=== PATIENT | female | born 1940 | race Caucasian/White ===

== ENCOUNTER → 2018-01-15 | Outpatient (CLI) | payer OTHER | LOC: FIMAGING 13:14 | PROVIDERS: ATTEND Orthopaedic Surgery | DX: Z01.818 Encounter for other preprocedural examination (principal); M17.12 Unilateral primary osteoarthritis, left knee; M25.462 Effusion, left knee; M71.22 Synovial cyst of popliteal space [Baker], left knee ==

== ENCOUNTER 2018-02-06 08:07 | Observation (INO) | payer OTHER ==
--- NOTE | 2018-02-06 07:12 | PDHPUP ---
History & Physical Update H&P update statement: This history and physical update is based on an assessment of the patient which was completed after admission or registration (within 24 hours), but prior to the surgery/procedure. H&P update: H&P reviewed & patient examined, no change in patient's condition since H&P completed
[~2018-02-06 08:07] MED LIST: BUPI/epINEPH/KETOROLAC IU ONE; ROPIVACAINE 0.2% 80 MG, EPINEPHrine 0.2 MG, KETOROLAC TROMETHAMINE 30 MG in SYRINGE 0 ML IU ONE; TRANEXAMIC ACID 3,000 MG in NS (SYRINGE) 50 ML IRR ONE; TRANEXAMIC ACID 3,000 MG/50 ML BAG IRR ONE
[2018-02-06] MEDS ORDERED: ACETAMINOPHEN 325 MG TAB PO ONE (08:48)
[2018-02-06] MEDS ORDERED: FAMOTIDINE 20 MG TAB PO ONE (08:48)
[2018-02-06] MEDS ORDERED: ceFAZolin 2 GM/SWFI 2 GM/20 ML SYR IVP ONE (08:48)
[2018-02-06] MEDS ORDERED: DEXAMETHASONE 4 MG/ML VIAL IVP ONE (08:48)
[2018-02-06] MEDS ORDERED: LIDOCAINE 1% 2 ML INJ ID PRN (08:49)
[2018-02-06] MEDS ORDERED: LR 1,000 ML IV ONE (08:49)
[2018-02-06] MEDS ORDERED: NON-FORMULARY NEW DRUG (Carboxymethylcellulose 1% [Refresh Celluvisc (*)] 1 DROP) EACHEYE PRN ×2 (09:34→09:49)
[2018-02-06] MEDS ORDERED: MIDAZOLAM 2 MG/2 ML VIAL IVP ONE (09:56)
[2018-02-06] MEDS ORDERED: MIDAZOLAM 2 MG/2 ML VIAL ONE (09:56)
[2018-02-06] MEDS ORDERED: ONDANSETRON 4 MG/2 ML VIAL IVP PRN ×2 (09:58→11:29)
[2018-02-06] MEDS ORDERED: ACETAMINOPHEN 500 MG TAB PO PRN (09:58)
[2018-02-06] MEDS ORDERED: fentaNYL 100 MCG/2 ML INJ IVP PRN (09:58)
[2018-02-06] MEDS ORDERED: PROMETHAZINE HCL 25 MG/ML INJ IVP PRN ×2 (09:58→11:29)
[2018-02-06] MEDS ORDERED: NALOXONE HCL 0.4 MG/ML INJ IVP PRN (09:58)
[2018-02-06] MEDS ORDERED: LR 500 ML IV PRN (09:58)
[2018-02-06] MEDS ORDERED: oxyCODONE IR 5 MG TAB PO PRN (09:58)
[2018-02-06] MEDS ORDERED: MEPERIDINE 25 MG/ML SYR IVP PRN (09:58)
--- NOTE | 2018-02-06 09:58 | PDANEPAE ---
ANE Past Medical History - Cardiovascular History Hx Hypertension: Yes Hx Arrhythmias: No Hx Chest Pain: No Hx Coronary Artery / Peripheral Vascular Disease: No Hx CHF / Valvular Disease: No Hx Palpitations: No Cardiovascular History Comment: HCTZ - Pulmonary History Hx COPD: No Hx Asthma/Reactive Airway Disease: No Hx Recent Upper Respiratory Infection: No Hx Oxygen in Use at Home: No Hx Sleep Apnea: No Sleep Apnea Screening Result - Last Documented: Positive - Neurologic History Hx Cerebrovascular Accident: No Hx Seizures: No Hx Dementia: No - Endocrine History Hx Diabetes: Yes Endocrine History Comment: HYPOTHYROID - Renal History Hx Renal Disorders: Yes Renal History Comment: KIDNEY CYST - Liver History Hx Hepatic Disorders: No - Neurological & Psychiatric Hx Hx Neurological and Psychiatric Disorders: Yes Neurological / Psychiatric History Comment: ANXIETY - Cancer History Hx Cancer: No - Congenital Disorder History Hx Congenital Disorders: No - GI History Hx Gastrointestinal Disorders: Yes Gastrointestinal History Comment: CELIAC DISEASE - Other Health History Other Health History: FIBROMYALGIA - Chronic Pain History Chronic Pain: Yes (FIBROMYALGIA GENERALIZED) - Surgical History Prior Surgeries: SPINAL FUSION L2-S1 -- 03/2015. CYST BACK OF LEG. GANGLION CYSTS HAND. TUBAL LIGATION. C SECTION X3 ANE Review of Systems Review of Systems: - Exercise capacity METS (RN): 4 METS ANE Patient History - Allergies Allergies/Adverse Reactions: gluten Allergy (Verified 01/21/18 11:18) STOMACH ACHE - Home Medications Home medications: home medication list seen and reviewed Home Medications: Acetaminophen [Tylenol ES 500 mg (*)] 1,000 mg PO TID 01/16/18 [Last Taken Unknown] Calcium Carb W/Vit D [Calcium Carb W/Vit D 500/200 (*)] 500 mg PO TID 01/16/18 [ Last Taken Unknown] Carboxymethylcellulose 1% [Refresh Celluvisc (*)] 1 drop EACHEYE DAILY PRN 01/16 [Last Taken Unknown] Cholecalciferol Vit D3 [Vitamin D3 2000 units tab (OTC)] 2,000 units PO DAILY [Last Taken Unknown] DULoxetine [Cymbalta 60 MG (*)] 60 mg PO HS 01/16/18 [Last Taken Unknown] Fexofenadine HCl 180 mg PO BID 01/16/18 [Last Taken Unknown] Hydrochlorothiazide [HCTZ (*)] 25 mg PO DAILY 01/16/18 [Last Taken Unknown] Levothyroxine [Synthroid 137 mcg (*)] 137 mcg PO DAILY06 01/16/18 [Last Taken Unknown] Liothyronine Sodium [Cytomel 5 mcg (*)] 5 mcg PO DAILY 01/16/18 [Last Taken Unknown] Methocarbamol [Robaxin 750 mg (*)] 750 mg PO HS 01/16/18 [Last Taken Unknown] Ranitidine HCl [Zantac] 150 mg PO BID 01/16/18 [Last Taken Unknown] oxyCODONE IR [Oxycodone Ir (*)] 5 mg PO TID 01/16/18 [Last Taken Unknown] - NPO status NPO Since - Liquids (Date): 02/06/18 NPO Since - Liquids (Time): 07:00 NPO Since - Solids (Date): 02/06/18 NPO Since - Solids (Time): 00:00 - Anes Hx Anes Hx: no prior problems - Smoking Hx Smoking Status: Former smoker - Family Anes Hx Family Hx Anesthesia Complications: NEG ANE Labs/Vital Signs - Vital Signs Blood Pressure: 138/71 Heart Rate: 74 Respiratory Rate: 14 O2 Sat (%): 96 Height: 160.02 cm Weight: 72.575 kg ANE Physical Exam - Airway Neck exam: FROM Mallampati Score: Class 2 Mouth exam: normal dental/mouth exam - Pulmonary Pulmonary: no respiratory distress, no rales or rhonchi, clear to auscultation - Cardiovascular Cardiovascular: regular rate and rhythym, no murmur, rub, or gallop - ASA Status ASA Status: II ANE Anesthesia Plan Anesthesia Plan: GA w LMA Regional Anesthesia: adductor canal FNB
[2018-02-06] MEDS ORDERED: DEXAMETHASONE 4 MG/ML VIAL ONE (10:04)
[2018-02-06] MEDS ORDERED: PROPOFOL 200 MG/20 ML VIAL ONE (10:04)
[2018-02-06] MEDS ORDERED: LIDOCAINE 2% 5 ML SDV ONE ×3 (10:05→10:19)
[2018-02-06] MEDS ORDERED: LIDOCAINE 2% JELLY 5 ML TUBE ONE (10:05)
[2018-02-06] MEDS ORDERED: ONDANSETRON 4 MG/2 ML VIAL ONE (10:08)
[2018-02-06] MEDS ORDERED: DIPHENOXYLATE/ATROPINE LOMOTIL 1 TAB PO PRN (11:29)
[2018-02-06] MEDS ORDERED: BISACODYL 10 MG SUPP PR PRN (11:29)
[2018-02-06] MEDS ORDERED: diphenhydrAMINE 25 MG CAP PO PRN (11:29)
[2018-02-06] MEDS ORDERED: POLYETHYLENE GLYCOL 3350 17 GM PKT PO PRN (11:29)
[2018-02-06] MEDS ORDERED: TEMAZEPAM 15 MG CAP PO PRN (11:29)
[2018-02-06] MEDS ORDERED: LACTULOSE 20 GM/30 ML UDCUP PO PRN (11:29)
[2018-02-06] MEDS ORDERED: MAGNESIUM HYDROXIDE 30 ML UDCUP PO PRN (11:29)
[2018-02-06] MEDS ORDERED: CYCLOBENZAPRINE 10 MG TAB PO PRN (11:29)
[2018-02-06] MEDS ORDERED: ONDANSETRON DISINTEGRATING 4 MG TAB PO PRN (11:29)
[2018-02-06] MEDS ORDERED: PROMETHAZINE HCL 25 MG SUPPR PR PRN (11:29)
[2018-02-06] MEDS ORDERED: METOCLOPRAMIDE 10 MG/2 ML VIAL IVP PRN (11:29)
--- NOTE | 2018-02-06 11:29 | POSTOPPROG ---
Post Op Note Date of Operation: 02/06/18 Surgeon: Damien Reddy Clothing Consultant: chang reddy Anesthesiologist: dr. maldonado Anesthesia: Spinal, Other (Specify) (adductor canal block) Pre-op Diagnosis: L knee OA Post-op Diagnosis: same Indication: left knee pain due to OA that failed conservative measures Procedure: L TKA robot assisted Findings: severe knee OA Inf/Abcess present in the surg proc area at time of surgery?: No EBL: 50-100
[2018-02-06] MEDS ORDERED: LR 1,000 ML IV SCH (11:30)
--- NOTE | 2018-02-06 11:59 | POSTANESTH ---
Post Anesthetic Evaluation Cardiovascular Status: Normal, Stable, Similar to Pre-Op Cond Respiratory Status: Normal, Stable, Similar to Pre-op Cond. Level of Consciousness/Mental Status: Can Participate in Eval, Mildly Sleepy, Arousable Pain Control: Adequate, Prn Tx Ordered Nausea/Vomiting Control: Adequate, Prn Tx Ordered Complications Possibly Related to Anesthesia: None Noted (Adductor canal nerve block performed in PACU/)
[2018-02-06] MEDS ORDERED: fentaNYL 100 MCG/2 ML INJ ONE (12:20)
[2018-02-06] MEDS ORDERED: ceFAZolin 2 GM/DEXTROSE 100 ML IV SCH (14:00)
[2018-02-06] MEDS: ACETAMINOPHEN 325 MG TAB PO SCH ×3 (14:20→23:52)
[2018-02-06] MEDS: ceFAZolin 2 GM/SWFI 2 GM/20 ML SYR IVP SCH (17:57)
[2018-02-06] MEDS ORDERED: METHOCARBAMOL 750 MG TAB PO SCH (21:00)
[2018-02-06] MEDS ORDERED: NON-FORMULARY NEW DRUG (Fexofenadine Hcl [Fexofenadine Hcl] 180 MG) PO SCH (21:00)
[2018-02-06] MEDS ORDERED: NON-FORMULARY NEW DRUG (Ranitidine Hcl [Zantac] 150 MG) PO SCH (21:00)
[2018-02-06] MEDS ORDERED: DULoxetine 60 MG CAP PO SCH (21:00)
[2018-02-06] MEDS: FAMOTIDINE 20 MG TAB PO SCH ×2 (21:06→23:39)
[2018-02-06] MEDS: ASPIRIN 81 MG CHEWABLE TAB PO SCH (21:07)
[2018-02-06] MEDS: SENNOSIDES/DOCUSATE SODIUM TAB PO SCH (21:07)
[2018-02-06] MEDS: oxyCODONE IR 5 MG TAB PO PRN (22:53)
[2018-02-07] MEDS: ceFAZolin 2 GM/SWFI 2 GM/20 ML SYR IVP SCH (02:15)
--- NOTE | 2018-02-07 02:17 | GOP ---
[f rep st] OPERATIVE REPORT DATE OF OPERATION: 02/06/2018 SURGEON: Jeremy Ortiz MD VPK TEACHER: Cecy Ortiz PA-C ANESTHESIA: Spinal. PREOPERATIVE DIAGNOSIS: Left knee osteoarthritis. POSTOPERATIVE DIAGNOSIS: Left knee osteoarthritis. PROCEDURE PERFORMED: Left total knee arthroplasty with computer navigation, robotic assist. FINDINGS: Severe patellofemoral and lateral osteoarthritis. ESTIMATED BLOOD LOSS: 30 cc. INDICATIONS: The patient is a 77-year-old female with severe and progressive pain and deformity of the left knee unresponsive to conservative care. The risks and benefits of surgical intervention were explained in detail. DESCRIPTION OF PROCEDURE: The patient was brought to the operative room and placed on the table in the supine position. Spinal anesthesia was induced without difficulty. A pneumatic tourniquet was applied about the left proximal thigh, and the leg was prepped and draped in a sterile fashion. The leg dennis was applied. After exsanguination by elevation the tourniquet was inflated to 250 mmHg. Incision was made anterior medial from the tibial tuberosity to a point 2 cm proximal to the superior pole of the patella. Medial parapatellar arthrotomy was carried out from the superior pole of the patella and posteriorly in line with the fibers of the Type II VMO. The medial collateral ligament was elevated and the infrapatellar fat pad was resected. The patella was everted and the articular surface was excised. A 32 mm patellar button was placed. Attention was turned first to the distal aspect of the femur. After exposure of the femur, 2 half pins were placed for fixation of the femoral array. In a similar fashion, 2 pins were placed anteromedial on the tibia for fixation of the tibial array. External land marking and registration of the hip center were performed without difficulty. Internal femoral and tibial registration was carried out without difficulty and the femoral and tibial checkpoints were placed and verified for accuracy. Attention was turned to the femur. The foot print for the size 3 femoral component was cut with the saw using the Breezy robotic system and verified for accuracy against the CT based plan. In a similar fashion, the saw was used to cut the footprint for the size 4 tibial component using the DORITA system and verified for accuracy against the CT based plan. The tibial articular surface was excised without difficulty, followed by the intercondylar box cut. The knee was extended and the remnants of the medial and lateral meniscus were excised. The posterior capsule was injected with ropivacaine, epinephrine and Toradol. A size 4 tibial tray was positioned. Trial reduction was then carried out. There was excellent range of motion, alignment, and stability using the 4.9 mm polyethylene. All trials were then removed. The joint was thoroughly irrigated and carefully dried. The press-fit components were implanted. The permanent 9 mm polyethylene was placed without difficulty. The tourniquet was deflated and all bleeders were coagulated. The wound was thoroughly irrigated and closed using interrupted sutures of 2-0 Vicryl for the joint capsule. The subcu was closed with 3-0 Vicryl and the skin with 4-0 Monocryl. Dermabond and Steri-Strips were applied followed by a compressive dressing. The patient was then moved from the operating room to the recovery room in good condition, having tolerated the procedure well. /[id number]/MODL MTDD
[2018-02-07] MEDS: oxyCODONE IR 5 MG TAB PO PRN ×3 (04:51→10:49)
[2018-02-07] MEDS: ACETAMINOPHEN 325 MG TAB PO SCH (05:04)
[2018-02-07] MEDS: LIOTHYRONINE SODIUM 5 MCG TAB PO SCH ×2 (05:04→05:05)
[2018-02-07] MEDS ORDERED: LEVOTHYROXINE 137 MCG TAB PO SCH (06:00)
[2018-02-07] MEDS ORDERED: LIOTHYRONINE SODIUM 5 MCG TAB PO SCH (09:00)
[2018-02-07] MEDS ORDERED: CETIRIZINE 10 MG TAB PO SCH (09:00)
[2018-02-07] MEDS ORDERED: HYDROCHLOROTHIAZIDE 25 MG TAB PO SCH (09:00)
[2018-02-07] MEDS: ASPIRIN 81 MG CHEWABLE TAB PO SCH (09:14)
[2018-02-07] MEDS: SENNOSIDES/DOCUSATE SODIUM TAB PO SCH (09:15)
[2018-02-07] MEDS: FAMOTIDINE 20 MG TAB PO SCH ×2 (09:15→09:21)
--- NOTE | 2018-02-07 09:54 | SOAPPROG ---
SOAP Progress Note Assessment/Plan: Assessment: Patient is doing well POD 1 s/p L TKA Pain management: pain is well controlled on oral pain meds. VTE ppx: recommend aspirin 81 mg BID for 4 weeks, cont CRYSTAL and SCDs Anemia: level is expected initially postop. Asymptomatic. Continue to monitor D/c planning: d/c to home today pending release from PT Plan: 02/07/18 09:53 Subjective: Bonnie Sheets is doing well today, denies SOB, chest pain and N/V. Objective: Vital Signs Temp Pulse Resp BP Pulse Ox 36.8 C 75 16 117/63 92 02/07/18 08:00 02/07/18 08:00 02/07/18 08:00 02/07/18 08:00 02/07/18 08:00 Laboratory Results 02/07/18 04:37 02/07/18 04:37 02/06/18 02/07/18 02/08/18 05:59 05:59 05:59 Intake Total 2265 500 Output Total 1675 Balance 590 500 LLE: incision dressing is clean and dry, NVI, +pf/df ICD10 Worksheet Patient Problems: Problems Problem Status Onset Primary localized osteoarthritis of left knee Acute
[2018-02-07 11:27] VITALS: BP 122/53
== END 2018-02-07 12:59 | disposition home or self-care (01) ==
LOC: F3N 08:07
PROVIDERS: ADMIT Orthopaedic Surgery; ATTEND Orthopaedic Surgery
PROC: 0SRD0JZ Replacement of Left Knee Joint with Synthetic Substitute, Open Approach (ICD-10-PCS; principal; 2018-02-06 10:15)
DX: M17.12 Unilateral primary osteoarthritis, left knee (principal); E03.9 Hypothyroidism, unspecified
CPT/HCPCS: 27447; 73560; 88311; 97116; 97161; 97165; 97535; C1776; G0378; G8978; G8979; G8980; G8987; G8988; G8989; J0171; J0690; J1100; J1885; J2250; J2270; J2405; J2704; J3010

== ENCOUNTER → 2018-04-25 | Outpatient (CLI) | payer OTHER | LOC: FIMAGING 12:45 | PROVIDERS: ATTEND Orthopaedic Surgery | DX: M17.11 Unilateral primary osteoarthritis, right knee (principal); M25.461 Effusion, right knee; M71.21 Synovial cyst of popliteal space [Baker], right knee ==